=== PATIENT | female | born 1985 | race Caucasian/White ===

== ENCOUNTER 2017-06-18 00:31 | Emergency (ER) | payer MEDICAID ==
--- NOTE | 2017-06-18 01:11 | ED Physician Chart ---
ED Chief Complaint/HPI - Patient Information Date Seen:: 06/18/17 Time Seen:: 01:00 History of Present Illness:: Patient reports that she believes she was bit by an insect three days prior which would explain abscess under jaw. No diabetes or reported fever. Patient reports pain and tenderness. Allergies:: Allergies Allergy/AdvReac Type Severity Reaction Status Date / Time tetracycline Allergy Verified 06/18/17 00:54 Vitals:: Vital Signs - 8 hr 06/18/17 00:35 Temp 98.0 F HR 92 RR 19 BP 109/71 O2 Sat % 99 Historian:: Patient Review:: Nurse's Note Reviewed ED Review of Systems - Review of Systems General/Constitutional: No fever Skin: Skin lesions (scab with some head formation\) Head: No headache Eyes: No loss of vision ENT: Sore throat (No pharyngeal sore throat ), No tinnitus Neck: Neck pain, Swelling, No thyromegaly Cardio Vascular: No chest pain Pulmonary: No SOB GI: No nausea, No vomiting G/U: No dysuria Musculoskeletal: No bone or joint pain Endocrine: No polyuria Psychiatric: No homicidal ideation Hematopoietic: No bruising Allergic/Immuno: No urticaria Neurological: No syncope ED Past Medical History - Past Medical History Past Medical History: No significant medical hx Family History: None Social History: Illicit Drug Use Psychiatricy History: None Family Medical History - Family Member Father Living Status: Hx Family Cancer: Yes Hx Family Hypertension: Yes ED Physical Exam - Physical Examination General/Constitutional: Alert Head: Atraumatic Eyes: Lids, conjuctiva normal Other Skin comments:: redness and induration right side jaw near angle tender to touch ENMT: Lips, teeth, gums nl Respiratory: Nl effort/Exclusion, Clear to Auscultation, No Wheeze/Rhonchi/Rales Cardio Vascular: RRR GI: No tenderness/rebounding/guarding Neuro/Psych: Alert/oriented Misc: Normal back ED Assessment - Assessment General Assessment: punctate scab with localized cellulitis, will treat with clindamycin and septra ds This condition life threatening/high prob of deterioration: No ED Septic Shock - . Is Septic Shock (SBP<90, OR Lactate>4 mmol\L) present?: No - <6hrs of presentation: Vital Signs: Vital Signs - 8 hr 06/18/17 00:35 Temp 98.0 F HR 92 RR 19 BP 109/71 O2 Sat % 99 ED Reassessment (Disposition) - Reassessment Reassessment Condition:: Unchanged - Aftercare/Follow up Instructions Aftercare/Follow-Up Instructions:: Counseled pt regarding lab results/diagnosis & need follow up Medication Prescribed:: ent referral as soon possible hot soaks take clindmycin septra stop diarrehea - Patient Disposition Discharge/Transfer:: Home (signs deteriation given for er return) ED Discharge Plan - Patient Disposition Admit/Discharge/Transfer: PT DISCHARGED HOME Condition at Disposition: Stable Instructions: Cellulitis, [id number] Additional Instructions: FOLLOW UP WITH [facility] ON MONDAY, COMPLY WITH PRESCRIBED MEDICATION. GO BACK TO EMERGENCY ROOM IF SYMPTOMS WORSEN.
== END 2017-06-18 02:00 | disposition home or self-care (01) ==
LOC: ER 00:31
DX: L03.211 Cellulitis of face (principal)
CPT/HCPCS: 99284; 96372; J1885; J0696; Z7502; Z7610

== ENCOUNTER 2018-02-05 07:24 | Emergency (ER) | payer MEDICAID, OTHER ==
[2018-02-05] MEDS ORDERED: TETRACAINE HCL 0.5% OPHTH SOLN 4ML BOTTLE ONE (07:48)
[2018-02-05] MEDS ORDERED: Fluorescein Sodium 1 mg Ophth Strip ONE (07:48)
[2018-02-05] MEDS ORDERED: Dacriose Ophth Soln 120 mL Bottle ONE (07:48)
[2018-02-05] MEDS ORDERED: APAP/Codeine 300 mg/30 mg Tab PO STA (08:14)
[2018-02-05] MEDS ORDERED: APAP/Codeine 300 mg/30 mg Tab ONE (08:16)
--- NOTE | 2018-02-05 10:15 | ED Physician Chart ---
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 pain, A/N/V/D/C, fever, chills, or urinary s/s; LNMP: 02/02/18; pt denies ; Allergies:: Allergies Allergy/AdvReac Type Severity Reaction Status Date / Time tetracycline Allergy Verified 06/18/17 00:54 Vitals:: Vital Signs - 8 hr 02/05/18 07:42 Temp 97.9 F HR 84 RR 19 BP 118/72 O2 Sat % 99 Historian:: Patient, Family Member Review:: Nurse's Note Reviewed ED Review of Systems - Review of Systems General/Constitutional: No fever, No chills, No weight loss, No weakness, No diaphoresis, No edema, No loss of appetite Skin: No skin lesions, No rash, No bruising Head: No headache, No light-headedness Eyes: No loss of vision, No pain, No diplopia, Other (Red Right Eye) ENT: No earache, No nasal drainage, No sore throat, No tinnitus Neck: No neck pain, No swelling, No thyromegaly, No stiffness, No mass noted Cardio Vascular: No chest pain, No palpitations, No PND, No orthopnea, No edema Pulmonary: No SOB, No cough, No sputum, No wheezing GI: No nausea, No vomiting, No diarrhea, No pain, No melena, No hematochezia, No constipation, No hematemesis G/U: No dysuria, No frequency, No hematuria, No nacturia Bushing Press Operator: No vaginal discharge, No abnormal vaginal bleed, No contraction Musculoskeletal: No bone or joint pain, No back pain, No muscle pain Endocrine: No polyuria, No polydipsia Psychiatric: No prior psych history, No depression, No anxiety, No suicidal ideation, No homicidal ideation, No auditory hallucination, No visual hallucination Hematopoietic: No bruising, No lymphadenopathy Allergic/Immuno: No urticaria, No angioedema Neurological: No syncope, No focal symptoms, No weakness, No paresthesia, No headache, No seizure, No dizziness, No confusion, No vertigo ED Past Medical History - Past Medical History Obtainable: Yes Past Medical History: No significant medical hx Family History: HTN Social History: Non Smoker, No Alcohol, No Drug Use, Surgical History: None Psychiatricy History: None Medication: Reviewed Family Medical History - Family Member Father Living Status: Hx Family Cancer: Yes Hx Family Hypertension: Yes ED Physical Exam - Physical Examination General/Constitutional: Awake, Well-developed, well-nourished, Alert, No distress, GCS 15, Non-toxic appearing, Ambulatory Head: Atraumatic Eyes: Lids, conjuctiva normal, PERRL, EOMI Other Eyes comments:: Va: 20/25 OD/ 20/25 OS/ OU; + Right Corneal Abrasion; no FBs; + Right Conjunctival Injection; no FBs; no hyphemas; IOP: 16 OU; no ocular discharge; PERRLA; Fundi: benign; EOMs: WNL; LLL: WNL; Left Eye: WNL Skin: Nl inspection, No rash, No skin lesions, No ecchymosis, Well hydrated, No lymphadenopathy ENMT: External ears, nose nl, TM canals nl, Nasal exam nl, Lips, teeth, gums nl , Oropharynx nl, Tonsils nl Other ENMT comments:: TMJs: WNL Neck: Nontender, Full ROM w/o pain, No JVD, No nuchal rigidity, No bruit, No mass, No stridor Other Neck comments:: supple; no meningeal signs; no cervical tenderness; no bruits Respiratory: Nl effort/Exclusion, Clear to Auscultation, No Wheeze/Rhonchi/Rales Cardio Vascular: RRR, No murmur, gallop, rubs, NL S1 S2, Carotid/Femoral/Distal pulses equal bilaterally GI: No tenderness/rebounding/guarding, No organomegaly, No hernia, Normal BS's, Nondistended, No mass/bruits, No McBurney tenderness Other GI comments:: no pulsatile masses : No CVA tenderness Extremities: No tenderness or effusion, Full ROM, normal strength in all extremities, No edema, Normal digits & nails Neuro/Psych: Alert/oriented, DTR's symmetric, Normal sensory exam, Normal motor strength, Judgement/insight normal, Mood normal, Normal gait, No focal deficits Other Neuro/Psych comments:: no focal signs Misc: Normal back, No paraspinal tenderness ED Assessment - Procedures Procedures:: Tobramycin Ophthalmic Eye Drops: 2 drops applied to Right Eye; Double Eye Patch applied to Right Eye Informed Consent: Procedure/risk/benefits explained by MD: Yes (pt improved; no complications) ED Septic Shock - . Is Septic Shock (SBP<90, OR Lactate>4 mmol\L) present?: No - <6hrs of presentation: Vital Signs: Vital Signs - 8 hr 02/05/18 07:42 Temp 97.9 F HR 84 RR 19 BP 118/72 O2 Sat % 99 ED Reassessment (Disposition) - Reassessment Reassessment:: pt is asymptomatic upon discharge Reassessment Condition:: Improved - Diagnosis Diagnosis:: Right Red Eye; Right Eye Irritation/FB Sensation; Right Conjunctivitis; Right Corneal Abrasion; Right Eye FB Exposure - Aftercare/Follow up Instructions Aftercare/Follow-Up Instructions:: Counseled pt regarding lab results/diagnosis & need follow up, Refer to Discharge Instructions, Counseled pt & family regarding lab results/diagnosis & need follow up Medication Prescribed:: Rx: Tobramycin Ophthalmic Eye Drops: 1 to 2 drops to Right Eye qid x 7 days; Wear Right Eye Patch x 24 hours; Eye Care Instructions - Patient Disposition Discharge/Transfer:: Home Condition at Disposition:: Stable, Improved (RTER prn if existing s/s reoccur and/or get worse and/or any other new s/s occur; ACIs given for all above Dx; Refer to Cable Hooker NATALIE; F/U with PMD in one day or prn; RTER prn if concerned) ED Discharge Plan - Patient Disposition Admit/Discharge/Transfer: PT DISCHARGED HOME Condition at Disposition: Stable Instructions: Eye - Corneal Abrasion, [id number], Eye - Viral Conjunctivitis
== END 2018-02-05 08:36 | disposition home or self-care (01) ==
LOC: ER 07:24
DX: S05.01XA Injury of conjunctiva and corneal abrasion without foreign body, right eye, initial encounter (principal); H10.9 Unspecified conjunctivitis; Z88.1 Allergy status to other antibiotic agents; X58.XXXA Exposure to other specified factors, initial encounter; Y93.89 Activity, other specified; Y92.89 Other specified places as the place of occurrence of the external cause; Y99.8 Other external cause status
CPT/HCPCS: Z7502; Z7610

== ENCOUNTER 2018-07-04 18:00 | Emergency (ER) | payer OTHER ==
--- NOTE | 2018-07-05 05:29 | ED Physician Chart ---
ED Chief Complaint/HPI - Patient Information Date Seen:: 07/04/18 Time Seen:: 18:20 Chief Complaint:: Chin Redness History of Present Illness:: onset x 3 days of chin redness, swelling, and erythema; pt denies trauma, LOC, ALOC, AMS, H/As, S/T, neck pain, visual or gait changes, cough, C/P, SOB, Abd. Pain, A/N/V/D/C, bleeding, fever, chills, or urinary s/s; pt's last tetanus shot : < 5 years; UTD; LNMP: 07/06/18; pt denies Allergies:: Allergies Allergy/AdvReac Type Severity Reaction Status Date / Time tetracycline Allergy Verified 06/18/17 00:54 Historian:: Patient Review:: Nurse's Note Reviewed ED Review of Systems - Review of Systems General/Constitutional: No fever, No chills, No weight loss, No weakness, No diaphoresis, No edema, No loss of appetite Skin: Skin lesions, No rash, No bruising Head: No headache, No light-headedness Eyes: No loss of vision, No pain, No diplopia ENT: No earache, No nasal drainage, No sore throat, No tinnitus Neck: No neck pain, No swelling, No thyromegaly, No stiffness, No mass noted Cardio Vascular: No chest pain, No palpitations, No PND, No orthopnea, No edema Pulmonary: No SOB, No cough, No sputum, No wheezing GI: No nausea, No vomiting, No diarrhea, No pain, No melena, No hematochezia, No constipation, No hematemesis G/U: No dysuria, No frequency, No hematuria, No nacturia 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 vaginal discharge, No abnormal vaginal bleed, No contraction Musculoskeletal: No bone or joint pain, No back pain, No muscle pain Endocrine: No polyuria, No polydipsia Psychiatric: No prior psych history, No depression, No anxiety, No suicidal ideation, No homicidal ideation, No auditory hallucination, No visual hallucination Hematopoietic: No bruising, No lymphadenopathy Allergic/Immuno: No urticaria, No angioedema Neurological: No syncope, No focal symptoms, No weakness, No paresthesia, No headache, No seizure, No dizziness, No confusion, No vertigo ED Past Medical History - Past Medical History Obtainable: Yes Past Medical History: No significant medical hx Family History: None Social History: Non Smoker, No Alcohol, No Drug Use, Psychiatricy History: None Medication: Reviewed Family Medical History - Family Member Father Living Status: Hx Family Cancer: Yes Hx Family Hypertension: Yes ED Physical Exam - Physical Examination General/Constitutional: Awake, Well-developed, well-nourished, Alert, No distress, GCS 15, Non-toxic appearing, Ambulatory Head: Atraumatic Eyes: Lids, conjuctiva normal, PERRL, EOMI Skin: Nl inspection, No rash, No skin lesions, No ecchymosis, Well hydrated, No lymphadenopathy Other Skin comments:: + Chin Cellulitis; good motor and sensory functions; no FBs; good NV functions ENMT: External ears, nose nl, TM canals nl, Nasal exam nl, Lips, teeth, gums nl , Oropharynx nl, Tonsils nl Neck: Nontender, Full ROM w/o pain, No JVD, No nuchal rigidity, No bruit, No mass, No stridor Other Neck comments:: supple; no meningeal signs; no cervical tenderness; no bruits Respiratory: Nl effort/Exclusion, Clear to Auscultation, No Wheeze/Rhonchi/Rales Cardio Vascular: RRR, No murmur, gallop, rubs, NL S1 S2, Carotid/Femoral/Distal pulses equal bilaterally GI: No tenderness/rebounding/guarding, No organomegaly, No hernia, Normal BS's, Nondistended, No mass/bruits, No McBurney tenderness Other GI comments:: no pulsatile masses : No CVA tenderness Extremities: No tenderness or effusion, Full ROM, normal strength in all extremities, No edema, Normal digits & nails Neuro/Psych: Alert/oriented, DTR's symmetric, Normal sensory exam, Normal motor strength, Judgement/insight normal, Mood normal, Normal gait, No focal deficits Other Neuro/Psych comments:: no focal signs Misc: Normal back, No paraspinal tenderness ED Septic Shock - . Is Septic Shock (SBP<90, OR Lactate>4 mmol\L) present?: No ED Reassessment (Disposition) - Reassessment Reassessment:: pt is asymptomatic upon discharge Reassessment Condition:: Improved - Diagnosis Diagnosis:: Chin Cellulitis; Localized Cellulitis - Aftercare/Follow up Instructions Aftercare/Follow-Up Instructions:: Counseled pt regarding lab results/diagnosis & need follow up, Refer to Discharge Instructions, Counseled pt & family regarding lab results/diagnosis & need follow up Medication Prescribed:: Rx: Keflex 500mg po qid x 10 days; Neosporin Ointment bid x 14 days; Warm Compresses; Heating Pads to affected area - Patient Disposition Discharge/Transfer:: Home Condition at Disposition:: Stable, Improved (RTER prn if existing s/s reoccur and/or get worse and/or any other new s/s occur; ACIs given for all above Dx; Refer to Excel Specialist/Vascular Surgeon/Cementer Machine Joiner NATALIE; F/U with PMD in one day or prn; RTER prn if concerned)
== END 2018-07-04 19:00 | disposition home or self-care (01) ==
LOC: ER 18:00
DX: L03.211 Cellulitis of face (principal); Z88.1 Allergy status to other antibiotic agents; Z91.030 Bee allergy status
CPT/HCPCS: 99283; 96372; J0696; Z7502

== ENCOUNTER 2018-07-05 13:07 | Emergency (ER) | payer OTHER ==
--- NOTE | 2018-07-05 13:33 | ED Physician Chart ---
ED Chief Complaint/HPI - Patient Information Date Seen:: 07/05/18 Time Seen:: 13:15 Chief Complaint:: lesions on chin History of Present Illness:: Patient's had 2 lesions on her chin for last one and one half days. She was seen here last night and prescribed Keflex 500 mg 4 times a day for 10 days. She believes the lesions are MRSA and she needs a prescription for Bactrim DS. Patient also developed myalgia and arthralgia last night. Patient states her father recently and she feels anxious and requests a prescription for a few and I anxiety pills. Patient has a primary care physician to whom she was referred for any prescription she may need except for the antibiotics to be prescribed today. Allergies:: Allergies Allergy/AdvReac Type Severity Reaction Status Date / Time tetracycline Allergy Verified 06/18/17 00:54 Historian:: Patient Review:: Nurse's Note Reviewed ED Review of Systems - Review of Systems General/Constitutional: Fever (patient states her temperature last night in the emergency room was 101) Skin: Skin lesions Head: No headache Eyes: No loss of vision ENT: No earache Neck: No neck pain, No swelling Cardio Vascular: No chest pain, No palpitations Pulmonary: No SOB GI: No nausea, No vomiting, No diarrhea G/U: No dysuria Musculoskeletal: No back pain Psychiatric: Anxiety Hematopoietic: No bruising Allergic/Immuno: No urticaria Neurological: No syncope, No focal symptoms ED Past Medical History - Past Medical History Past Medical History: Asthma/COPD Family History: Heart disease, Diabetes Melitus, HTN Social History: Non Smoker, No Alcohol Surgical History: other (tonsillectomy and adenoidectomy and ovarian cyst resected) Psychiatricy History: Other (see history) Medication: Reviewed Family Medical History - Family Member Father Living Status: Hx Family Cancer: Yes Hx Family Hypertension: Yes ED Physical Exam - Physical Examination General/Constitutional: Awake, Well-developed, well-nourished, Alert, No distress Head: Atraumatic Eyes: Lids, conjuctiva normal, PERRL Other Skin comments:: 1 cm crust midline chin and 1 cm crust left side of chin about 2 cm to the left of the midline crust. Erythema and slight swelling between the 2 crusts. ENMT: External ears, nose nl, TM canals nl, Nasal exam nl, Lips, teeth, gums nl , Oropharynx nl, Tonsils nl Neck: No nuchal rigidity Respiratory: Nl effort/Exclusion Cardio Vascular: RRR, No murmur, gallop, rubs GI: No tenderness/rebounding/guarding Extremities: No edema Neuro/Psych: Alert/oriented, No focal deficits Misc: Normal back, No paraspinal tenderness ED Assessment - Assessment General Assessment: Will give patient one Bactrim DS in the emergency room and prescribe 20 to take one twice a day. Told patient if crusts and redness are much improved after 1 week of antibiotic therapy she can stop the antibiotics. ED Septic Shock - . Is Septic Shock (SBP<90, OR Lactate>4 mmol\L) present?: No ED Reassessment (Disposition) - Reassessment Reassessment Condition:: Unchanged - Diagnosis Diagnosis:: Cellulitis chin - Aftercare/Follow up Instructions Aftercare/Follow-Up Instructions:: Refer to Discharge Instructions - Patient Disposition Discharge/Transfer:: Home Condition at Disposition:: Stable
[2018-07-05] MEDS ORDERED: Sulfamethoxazole/TMP 800/160mg Tab PO ONE (13:44)
[2018-07-05] MEDS ORDERED: Sulfamethoxazole/TMP 800/160mg Tab ONE (14:09)
== END 2018-07-05 14:28 | disposition home or self-care (01) ==
LOC: ER 13:07
DX: L03.211 Cellulitis of face (principal); F41.9 Anxiety disorder, unspecified; J44.9 Chronic obstructive pulmonary disease, unspecified; Z88.1 Allergy status to other antibiotic agents
CPT/HCPCS: Z7502